=== PATIENT | male | born 1960 | race Caucasian/White ===

== ENCOUNTER 2021-06-05 04:21 | Inpatient (IN) | payer OTHER ==
[2021-06-05] MEDS ORDERED: BACITRACIN 15 GM TUBE TOPICAL OINTMENT ONE ×2 (14:29→14:35)
[2021-06-05] MEDS ORDERED: BUPIVACAINE HCL/PF 0.5% (5MG/ML) 10 ML VIAL ONE ×2 (14:35→17:38)
[2021-06-05] MEDS ORDERED: THROMBIN (BOVINE) 5,000 UNIT VIAL TP ONE ×2 (14:35→18:18)
[2021-06-05] MEDS ORDERED: PROPOFOL 20 ML ONE (14:55)
[2021-06-05] MEDS ORDERED: LIDOCAINE HCL/PF 2% SDV 5ML VIAL ONE (14:55)
[2021-06-05] MEDS ORDERED: fentaNYL CITRATE 250 MCG/5 ML VIAL ONE (14:55)
[2021-06-05] MEDS ORDERED: MIDAZOLAM HCL 2 MG/2 ML SINGLE DOSE VIAL ONE (14:56)
[2021-06-05] MEDS ORDERED: SUCCINYLCHOLINE CHLORIDE 200 MG/10 ML SYRINGE ONE (14:56)
[2021-06-05] MEDS ORDERED: ROCURONIUM BROMIDE 50 MG/5 ML SYRINGE ONE (14:58)
[2021-06-05] MEDS ORDERED: ceFAZolin SODIUM 1 GM VIAL IVPB ONE (16:00)
[2021-06-05] MEDS ORDERED: GLYCOPYRROLATE 0.2 MG/1 ML VIAL ONE (17:48)
[2021-06-05] MEDS ORDERED: NEOSTIGMINE METHYLSULFATE 0.5 MG/1 ML - 10 ML MDV ONE (17:48)
[2021-06-05] MEDS ORDERED: ONDANSETRON 4 MG/2 ML VIAL IVPUSH PRN ×2 (17:58→18:03)
[2021-06-05] MEDS ORDERED: ALBUTEROL SO4 HFA INHALER IH PRN (18:00)
[2021-06-05] MEDS ORDERED: HYDROmorphone HCl 2 MG/ML VIAL IVPUSH PRN ×2 (18:04→18:05)
[2021-06-05] MEDS ORDERED: ACETAMINOPHEN 1000 MG/100 ML VIAL (NON FORMULARY) IVPB ONE (18:04)
[2021-06-05] MEDS ORDERED: BUPIVACAINE HCL/PF 0.5% (5MG/ML) 10 ML VIAL IJ ONE (18:16)
[2021-06-05] MEDS ORDERED: ALBUTEROL SO4 0.083% IH SOL 2.5 MG/3 ML VIAL.NEB. NEB ONE (18:22)
[2021-06-05] MEDS ORDERED: HYDROmorphone HCl 2 MG/ML VIAL ONE (19:10)
[2021-06-05] MEDS ORDERED: ACETAMINOPHEN INJECTION 100 ML IVPB ONE (19:10)
[2021-06-05] MEDS: D5-1/2NS+20 MEQ KCL - 20 MEQ/1,000 ML INFUS.BAG IV SCH (20:40)
[2021-06-05] MEDS ORDERED: DEXTROSE 5%-WATER - 50 ML IVPB ONE (21:28)
[2021-06-05] MEDS ORDERED: ceFAZolin SODIUM 1 GM VIAL ONE (21:28)
[2021-06-05] MEDS: CEFAZOLIN 1 GM in DEXTROSE 5%-WATER - 50 ML IVPB SCH (21:30)
[2021-06-05] MEDS: DOCUSATE SODIUM 100 MG CAPSULE (FP) PO SCH (21:42)
[2021-06-05] MEDS: diazePAM 5 MG TABLET PO SCH (21:43)
[2021-06-05] MEDS: ATORVASTATIN CA 20 MG TABLET (FP) PO SCH (21:43)
[2021-06-05] MEDS: GABAPENTIN 300 MG CAPSULE PO SCH (21:43)
[2021-06-05] MEDS: LACTATED RINGERS SOLUTION 1,000 ML IV SCH (21:50)
[2021-06-06] MEDS ORDERED: ceFAZolin SODIUM 1 GM VIAL ONE (01:24)
[2021-06-06] MEDS: CEFAZOLIN 1 GM in DEXTROSE 5%-WATER - 50 ML IVPB SCH (01:49)
[2021-06-06] MEDS: oxyCODONE HCL 5 MG TABLET PO PRN ×2 (03:28→19:03)
[2021-06-06] MEDS: diazePAM 5 MG TABLET PO SCH ×3 (04:00→20:25)
[2021-06-06 04:01] VITALS: BMI 24.3
[2021-06-06] MEDS: DOCUSATE SODIUM 100 MG CAPSULE (FP) PO SCH ×3 (05:59→22:16)
[2021-06-06] MEDS: HYDROmorphone HCl 2 MG/ML VIAL IVPB PRN ×3 (08:36→22:23)
[2021-06-06] MEDS ORDERED: PT OWN MED DRAWER 7, Y5N ONE (09:42)
[2021-06-06] MEDS: GABAPENTIN 300 MG CAPSULE PO SCH ×2 (09:46→22:16)
[2021-06-06] MEDS: DOXEPIN HCL 10 MG CAPSULE PO SCH (09:46)
[2021-06-06] MEDS: PANTOPRAZOLE 40 MG TABLET PO SCH (09:46)
[2021-06-06] MEDS: LACTATED RINGERS SOLUTION 1,000 ML IV SCH (19:01)
[2021-06-06] MEDS: D5-1/2NS+20 MEQ KCL - 20 MEQ/1,000 ML INFUS.BAG IV SCH (19:01)
[2021-06-06] MEDS: ATORVASTATIN CA 20 MG TABLET (FP) PO SCH (22:16)
[2021-06-07] MEDS: HYDROmorphone HCl 2 MG/ML VIAL IVPB PRN (02:52)
[2021-06-07] MEDS: diazePAM 5 MG TABLET PO SCH ×2 (03:15→09:52)
[2021-06-07 04:53] VITALS: TEMP 98.9
[2021-06-07] MEDS: DOCUSATE SODIUM 100 MG CAPSULE (FP) PO SCH (06:48)
[2021-06-07 09:09] VITALS: BP 145/91; PULSE 103
[2021-06-07] MEDS ORDERED: PT OWN MED DRAWER 7, Y5N ONE (09:52)
[2021-06-07] MEDS: GABAPENTIN 300 MG CAPSULE PO SCH (09:52)
[2021-06-07] MEDS: PANTOPRAZOLE 40 MG TABLET PO SCH (09:52)
[2021-06-07] MEDS: DOXEPIN HCL 10 MG CAPSULE PO SCH (09:53)
[2021-06-07] MEDS: oxyCODONE HCL 5 MG TABLET PO PRN (11:18)
== END 2021-06-07 12:40 | disposition home or self-care (01) | DRG 30 ==
LOC: J2C 04:21 → J6S 21:21
PROVIDERS: ADMIT Neurological Surgery; ATTEND Neurological Surgery
PROC: 00NW0ZZ Release Cervical Spinal Cord, Open Approach (ICD-10-PCS; 2021-06-05)
PROC: 01N10ZZ Release Cervical Nerve, Open Approach (ICD-10-PCS; principal; 2021-06-05 13:00)
DX: M54.12 Radiculopathy, cervical region (principal); M48.02 Spinal stenosis, cervical region; Z18.9 Retained foreign body fragments, unspecified material; G89.4 Chronic pain syndrome; F41.8 Other specified anxiety disorders
CPT/HCPCS: 76000-TC-FY; 86850; 86900; 86901; 94760; 97116-GP; 97161-GP; C9803; J0131; U0003; U0005